=== PATIENT | female | born 1970 | race Caucasian/White ===

== ENCOUNTER 2017-10-25 09:45 | Emergency (ER) | payer SELFPAY ==
[~2017-10-25] VITALS: Ht 160 cm; Wt 68.0 kg
[~2017-10-25 09:45] MED LIST: SERO200T2 PO; VIST25CA PO
[2017-10-25 09:47] VITALS: BP 148/89; PULSE 120; RESP 16; TEMP 98.9; O2SAT 98
[2017-10-25] MEDS ORDERED: LORazepam 0.5 MG TAB PO ONE (10:45)
--- NOTE | 2017-10-25 11:00 | PD ---
HPI Chief Complaint: OD/ Ingestion Time Seen by Provider: 10:27 Travel History International Travel<30 days: No Contact w/Intl Traveler<30days: No Traveled to known affect area: No History of Present Illness HPI 47-year-old female complains of depression and suicidal. Patient has history of anxiety and depression. Patient states that she took 25 pills of amlodipine 10 mg each 2 days ago. Patient states that she took 8 tablets of temazepam 2 days ago also. Patient does not know the dosage of temazepam. Patient states that she has generalized malaise and weakness. Patient denies any headache. Patient states that she has chest pressure occasionally. Patient denies any coughing congestion fever chills. Patient denies abdominal pain. Patient denies any nausea vomiting diarrhea. Patient denies any focal weakness or numbness of extremity. Patient denies any medical problem. Patient denies any routine medication. Patient denies any alcohol or illicit drug abuse. PFSH Past Medical History Bipolar Disorder: Yes Anxiety: Yes Depression: Yes Musculoskeletal: Yes (CARPEL TUNNEL ) Tetanus Vaccination: Unknown ?: Not Past Surgical History Other Surgery: Yes (RIGHT TENDON SURGERY) Social History Alcohol Use: No Tobacco Use: Yes Substance Use: No Allergies-Medications (Allergen,Severity, Reaction): Coded Allergies: No Known Allergies (Unverified Adverse Reaction, Unknown, 10/25/17) Reported Meds & Prescriptions Reported Meds & Active Scripts Active No Active Prescriptions or Reported Medications Review of Systems General / Constitutional: No: Fever Eyes: No: Visual changes HENT: No: Headaches Cardiovascular: No: Chest Pain or Discomfort Respiratory: No: Shortness of Breath Gastrointestinal: No: Abdominal Pain Genitourinary: No: Dysuria Musculoskeletal: No: Pain Skin: No Rash Neurologic: No: Weakness Psychiatric: No: Depression Endocrine: No: Polydipsia Hematologic/Lymphatic: No: Easy Bruising Physical Exam Narrative GENERAL: Well-nourished, well-developed patient. SKIN: Focused skin assessment warm/dry. HEAD: Normocephalic. EYES: No scleral icterus. No injection or drainage. NECK: Supple, trachea midline. No JVD or lymphadenopathy. CARDIOVASCULAR: Regular rate and rhythm without murmurs, gallops, or rubs. RESPIRATORY: Breath sounds equal bilaterally. No accessory muscle use. GASTROINTESTINAL: Abdomen soft, non-tender, nondistended. MUSCULOSKELETAL: No cyanosis, or edema. BACK: Nontender without obvious deformity. No CVA tenderness. Neurologic exam normal. Data Data Last Documented VS Vital Signs Date Time Temp Pulse Resp B/P (MAP) Pulse Ox O2 Delivery O2 Flow Rate FiO2 10/25/17 09:47 98.9 120 16 148/89 (108) 98 Orders Orders Lorazepam (Ativan) (10/25/17 10:45) Complete Blood Count With Diff (10/25/17 10:38) Comprehensive Metabolic Panel (10/25/17 10:38) Thyroid Stimulating Hormone (10/25/17 10:38) Urinalysis - C+S If Indicated (10/25/17 10:38) Electrocardiogram (10/25/17 10:38) Psych Screen (10/25/17 10:38) Drug Screen, Random Urine (10/25/17 10:38) Alcohol (Ethanol) (10/25/17 10:38) Salicylates (Aspirin) (10/25/17 10:38) Tylenol (Acetaminophen) (10/25/17 10:38) Urine Culture (10/25/17 10:42) Labs Laboratory Tests Test 10/25/17 10:42 White Blood Count 10.9 TH/MM3 Red Blood Count 4.42 MIL/MM3 Hemoglobin 13.6 GM/DL Hematocrit 38.0 % Mean Corpuscular Volume 85.9 FL Mean Corpuscular Hemoglobin 30.9 PG Mean Corpuscular Hemoglobin Concent 35.9 % Red Cell Distribution Width 13.1 % Platelet Count 313 TH/MM3 Mean Platelet Volume 7.8 FL Neutrophils (%) (Auto) 76.0 % Lymphocytes (%) (Auto) 17.0 % Monocytes (%) (Auto) 6.6 % Eosinophils (%) (Auto) 0.1 % Basophils (%) (Auto) 0.3 % Neutrophils # (Auto) 8.3 TH/MM3 Lymphocytes # (Auto) 1.9 TH/MM3 Monocytes # (Auto) 0.7 TH/MM3 Eosinophils # (Auto) 0.0 TH/MM3 Basophils # (Auto) 0.0 TH/MM3 CBC Comment DIFF FINAL Differential Comment Urine Color CHIDI Urine Turbidity HAZY Urine pH 5.5 Urine Specific [place] 1.023 Urine Protein 100 mg/dL Urine Glucose (UA) TRACE mg/dL Urine Ketones TRACE mg/dL Urine Occult Blood MOD Urine Nitrite NEG Urine Bilirubin SMALL Urine Urobilinogen 4.0 MG/DL Urine Leukocyte Esterase TRACE Urine RBC 3 /hpf Urine WBC 9 /hpf Urine Squamous Epithelial Cells 12 /hpf Urine Bacteria FEW /hpf Urine Hyaline Casts 105 /lpf Urine Mucus MANY /lpf Microscopic Urinalysis Comment CULTURE INDICATED Blood Urea Nitrogen 10 MG/DL Creatinine 0.81 MG/DL Random Glucose 108 MG/DL Total Protein 8.4 GM/DL Albumin 4.3 GM/DL Calcium Level 9.9 MG/DL Alkaline Phosphatase 109 U/L Aspartate Amino Transf (AST/SGOT) 13 U/L Alanine Aminotransferase (ALT/SGPT) 17 U/L Total Bilirubin 0.4 MG/DL Sodium Level 134 MEQ/L Potassium Level 3.4 MEQ/L Chloride Level 100 MEQ/L Carbon Dioxide Level 23.9 MEQ/L Anion Gap 10 MEQ/L Estimat Glomerular Filtration Rate 75 ML/MIN Thyroid Stimulating Hormone 3rd Gen 1.540 uIU/ML Salicylates Level 4.4 MG/DL Urine Opiates Screen NEG Acetaminophen Level LESS THAN 2.0 MCG/ML Urine Barbiturates Screen NEG Urine Amphetamines Screen NEG Urine Benzodiazepines Screen POS Urine Cocaine Screen NEG Urine Cannabinoids Screen NEG Ethyl Alcohol Level LESS THAN 3 MG/DL MDM Medical Decision Making Medical Screen Exam Complete: Yes Emergency Medical Condition: Yes Interpretation(s) 1315 p.m. CBC within normal limit. Sodium 134. Potassium 3.4. Urine drug screen positive for benzodiazepine. Acetaminophen salicylate negative. Alcohol negative. Differential Diagnosis Differential diagnosis including depression, suicidal, drug overdose. Narrative Course 47-year-old female with depression and overdose on medication. Ativan 0.5 mg by mouth given. 1317 p.m. Patient is medically cleared for psychiatric evaluation and disposition. Scripts No Active Prescriptions or Reported Meds Minor Cabrera MD Oct 25, 2017 10:59
[2017-10-25 11:05] LABS: AUTOMATED NEUTROPHIL # 8.3 TH/MM3 (1.8-7.7); BASOPHIL % 0.3 % (0.0-2.0); EOSINOPHIL % 0.1 % (0.0-4.0); HEMOGLOBIN 13.6 GM/DL (11.6-15.3); LYMPHOCYTE # 1.9 TH/MM3 (1.0-4.8); MEAN CELL VOLUME 85.9 FL (80.0-100.0); MEAN CORPUSCULAR HEMOGLOBIN 30.9 PG (27.0-34.0); MEAN CORPUSCULAR HGB CONC 35.9 % (32.0-36.0); MEAN PLATELET VOLUME 7.8 FL (7.0-11.0); MONO % 6.6 % (0.0-8.0); MONOCYTE # 0.7 TH/MM3 (0-0.9); PLATELET COUNT 313 TH/MM3 (150-450); RED BLOOD COUNT 4.42 MIL/MM3 (4.00-5.30); RED CELL DISTRIBUTION WIDTH 13.1 % (11.6-17.2); WHITE BLOOD COUNT 10.9 TH/MM3 (4.0-11.0)
[2017-10-25 11:28] LABS: BACTERIA, URINE FEW /hpf; BILIRUBIN, URINE SMALL (NEG); BLOOD, URINE MOD (NEG); GLUCOSE,URINE TRACE mg/dL (NEG); HYALINE CAST, URINE 105 /lpf (RARE); KETONE, URINE TRACE mg/dL (NEG); MUCUS URINE MANY /lpf (OCC); NITRITE,URINE NEG (NEG); PH, URINE 5.5 (5.0-8.5); SQUAMOUS EPITHELIAL CELL URINE 12 /hpf (0-5); URINE LEUKOCYTE ESTERASE TRACE (NEG)
[2017-10-25 11:29] LABS: ALBUMIN 4.3 GM/DL (3.4-5.0); AST (GOT) 13 U/L (15-37); BICARBONATE 23.9 MEQ/L (21.0-32.0); BLOOD UREA NITROGEN 10 MG/DL (7-18); CALCIUM 9.9 MG/DL (8.5-10.1); CHLORIDE 100 MEQ/L (98-107); CREATININE 0.81 MG/DL (0.50-1.00); GLOMERULAR FILTRATION RATE 75 ML/MIN (>89); GLUCOSE,RANDOM 108 MG/DL (74-106); SODIUM (NA) 134 MEQ/L (136-145)
[2017-10-25 11:33] LABS: URINE COLOR AMBER (YELLW/STRAW)
[2017-10-25 11:40] LABS: ALKALINE PHOSPHATASE 109 U/L (45-117); ALT (GPT) 17 U/L (10-53); TOTAL BILIRUBIN ADULT 0.4 MG/DL (0.2-1.0); TOTAL PROTEIN 8.4 GM/DL (6.4-8.2)
[2017-10-25 11:43] LABS: ACETAMINOPHEN LESS THAN 2.0 MCG/ML (10.0-30.0)
[2017-10-25 13:18] VITALS: BP 126/78; PULSE 95; RESP 18; O2SAT 96
[2017-10-25] MEDS ORDERED: ACETAMINOPHEN 325 MG TAB PO ONE (16:30)
[2017-10-25 16:53] VITALS: BP 125/74; PULSE 89; RESP 18; O2SAT 95
[2017-10-26 02:22] VITALS: BP 111/65; PULSE 87; RESP 17; TEMP 99.1; O2SAT 97
--- NOTE | 2017-10-26 12:02 | EKG ---
Date Performed: 10/25/2017 Time Performed: 11:48:33 PTAGE: 47 years EKG: Sinus rhythm NONSPECIFIC T-WAVE ABNORMALITY BORDERLINE ECG NO PREVIOUS TRACING DOCTOR: Sachin Weber Interpretating Date/Time 10/26/2017 12:00:28
--- NOTE | 2017-10-26 12:17 | PD ---
History of Present Illness Chief Complaint: OD/ Ingestion Time Seen by Provider: 11:30 Travel History International Travel<30 Days: No Contact w/Intl Traveler<30days: No Known affected area: No Legal Status Legal Status: Voluntary History of Present Illness: History of Present Illness HPI 47-year-old female with reported history of depression and anxiety who presents to the emergency department on a voluntary basis for psychiatric evaluation. She reports that last week she took unknown amount of blood pressure medication as a suicidal gesture. Two days later she also reports that she took 8 tablets of temazepam because she wanted to sleep. The patient did not seek medical treatment at that time. She reports that she has been feeling depressed since the of her father in April 2017. Last week she reports she felt overwhelmed by her emotions. She states that she took the pills but feels that she "made a mistake." She also states "I want to get myself together". She wants to get help and wants to begin treatment once again. Electronic medical record is reviewed. One previous contact with [facility] psychiatry in 2013 at which time she presented with complaints of anxiety and felt that the medication prescribed to her by [facility] was ineffective. Patient's current toxicology report is negative for any substance of abuse. The patient has been monitored in [facility] and she has presented no behavioral concerns and no suicidality. The patient is alert, oriented female who is dressed in [facility] and is maintaining basic hygiene. Her speech is clear, logical and goal-directed. She is tearful at times. Mood is depressed and anxious. She reports that she has been staying home, afraid to go out, feeling anxious. The patient acknowledges above-mentioned stressors. There is no evidence that the patient is experiencing any hallucinations, no delusions, no paranoia. She denies any suicidal or homicidal ideation, intent or plan. She is requesting to be discharge and wants to follow up with [facility]. She has support from her brother and his as well as with her boyfriend whom she lives with. . PFSH Past Medical History Bipolar Disorder: Yes Anxiety: Yes Depression: Yes Musculoskeletal: Yes (CARPEL TUNNEL ) Tetanus Vaccination: Unknown ?: Not Past Surgical History Other Surgery: Yes (RIGHT TENDON SURGERY) Psychiatric History Psychiatric History Hx Psychiatric Treatment: HX: DEPRESSION AND ANXIETY. No history of psychiatric hospitalizations. Has received outpatient treatment at [facility] in 2011 and 2013. No previous history of suicide attempts. History of Inpatient Treatment: No Guns or firearms in home: No Social History Single female who was born in [place]. Currently is unemployed and has not worked since 2011. Lives with her boyfriend. Hx Alcohol Use: No Hx Tobacco Use: Yes Hx Substance Use: No Substance Use Type: Nicotine/Cigarettes Hx of Substance Use Treatment: No Family Psychiatric History Negative Allergies-Medications (Allergen,Severity, Reaction): Coded Allergies: No Known Allergies (Unverified Adverse Reaction, Unknown, 10/25/17) Reported Meds & Prescriptions Reported Meds & Active Scripts Active No Active Prescriptions or Reported Medications Review of Systems Psychiatric: COMPLAINS OF: Anxiety, Depression Except as stated in HPI: all other systems reviewed are Neg Mental Status Examination Appearance: Appropriate (dressed in [facility]) Consciousness: Alert Orientation: x4 Motor Activity: Normal gait Speech: Unremarkable Language: Adequate Fund of Knowledge: Adequate Attention and Concentration: Adequate Memory: Unremarkable Mood: Sad, Anxious Affect: Appropriate Thought Process & Associations: Intact Thought Content: Appropriate Hallucination Type: None Delusion Type: None Suicidal Ideation: No Suicidal Plan: No Suicidal Intention: No Homicidal Ideation: No Homicidal Plan: No Homicidal Intention: No Insight: Adequate Judgment: Adequate [facility] Medical Decision Making Medical Record Reviewed: Yes Assessment/Plan 47-year-old female with history of depression and anxiety who presents to [facility] on a voluntary status reporting that last week she overdosed on blood pressure medication as well as on sleeping medication. She did not seek medical attention at the time of the alleged suicidal gesture. The patient reports she has been feeling depressed since the of her father in April 2017. No other stressors are reported. The patient was monitored in secure environment and presented no behavioral concerns and no suicidality. At this time she is requesting to be discharged reports that she feels safe to go home. The patient is future oriented and has made statements that she wants to get better, that she wants to get help. She has supportive family members. She is cognitively intact. She contracts for safety as a general safety plan. She agrees to return to [facility] if any changes or any increase in symptoms. She will follow up with Aubrey Mccray in the morning for outpatient care and for medication evaluation. She is provided psychoeducation and support. Patient is psychiatrically clear for discharge from ED. Orders Orders Acetaminophen (Tylenol) (10/25/17 16:30) Diet Regular Basic (10/25/17 Dinner) Diet Regular Basic (10/26/17 Breakfast) Diet Regular Basic (10/26/17 Dinner) Results Vital Signs Date Time Temp Pulse Resp B/P (MAP) Pulse Ox O2 Delivery O2 Flow Rate FiO2 10/26/17 02:22 99.1 87 17 111/65 (80) 97 Room Air 10/25/17 16:53 89 18 125/74 (91) 95 Room Air 10/25/17 13:18 95 18 126/78 (94) 96 Room Air Date/Time Source Procedure Growth Status 10/25/17 10:42 Urine Random Urine Urine Culture Pending Worksheet Diagnosis Primary Impression: Adjustment disorder Psychiatrically Cleared: Yes Med/ Other Pt Specific Info: No Meds Exist/No RX given Prescriptions No Active Prescriptions or Reported Meds Disposition: 01 DISCHARGE HOME Condition: Stable Problem Qualifiers Primary Impression: Adjustment disorder Qualified Codes: F43.23 - Adjustment disorder with mixed anxiety and depressed mood Rosalie Douglass Oct 26, 2017 12:17
--- NOTE | 2017-10-26 12:22 | PD ---
Physical Exam Date Seen by Provider: Oct 26, 2017 Time Seen by Provider: 12:21 Narrative 47-year-old female came to the emergency Department voluntarily for psychiatric evaluation. She has been seen and cleared by the psychiatric nurse practitioner , Rosalie. The patient denies any current suicidal or homicidal thoughts. She feels comfortable and is excited to go home. Data Data Last Documented VS Vital Signs Date Time Temp Pulse Resp B/P (MAP) Pulse Ox O2 Delivery O2 Flow Rate FiO2 10/26/17 02:22 99.1 87 17 111/65 (80) 97 Room Air Orders Orders Lorazepam (Ativan) (10/25/17 10:45) Complete Blood Count With Diff (10/25/17 10:38) Comprehensive Metabolic Panel (10/25/17 10:38) Thyroid Stimulating Hormone (10/25/17 10:38) Urinalysis - C+S If Indicated (10/25/17 10:38) Electrocardiogram (10/25/17 10:38) Psych Screen (10/25/17 10:38) Drug Screen, Random Urine (10/25/17 10:38) Alcohol (Ethanol) (10/25/17 10:38) Salicylates (Aspirin) (10/25/17 10:38) Tylenol (Acetaminophen) (10/25/17 10:38) Urine Culture (10/25/17 10:42) Acetaminophen (Tylenol) (10/25/17 16:30) Diet Regular Basic (10/25/17 Dinner) Diet Regular Basic (10/26/17 Breakfast) Diet Regular Basic (10/26/17 Dinner) Diet Regular Basic (10/26/17 Lunch) Labs Laboratory Tests Test 10/25/17 10:42 White Blood Count 10.9 TH/MM3 Red Blood Count 4.42 MIL/MM3 Hemoglobin 13.6 GM/DL Hematocrit 38.0 % Mean Corpuscular Volume 85.9 FL Mean Corpuscular Hemoglobin 30.9 PG Mean Corpuscular Hemoglobin Concent 35.9 % Red Cell Distribution Width 13.1 % Platelet Count 313 TH/MM3 Mean Platelet Volume 7.8 FL Neutrophils (%) (Auto) 76.0 % Lymphocytes (%) (Auto) 17.0 % Monocytes (%) (Auto) 6.6 % Eosinophils (%) (Auto) 0.1 % Basophils (%) (Auto) 0.3 % Neutrophils # (Auto) 8.3 TH/MM3 Lymphocytes # (Auto) 1.9 TH/MM3 Monocytes # (Auto) 0.7 TH/MM3 Eosinophils # (Auto) 0.0 TH/MM3 Basophils # (Auto) 0.0 TH/MM3 CBC Comment DIFF FINAL Differential Comment Urine Color CHIDI Urine Turbidity HAZY Urine pH 5.5 Urine Specific [place] 1.023 Urine Protein 100 mg/dL Urine Glucose (UA) TRACE mg/dL Urine Ketones TRACE mg/dL Urine Occult Blood MOD Urine Nitrite NEG Urine Bilirubin SMALL Urine Urobilinogen 4.0 MG/DL Urine Leukocyte Esterase TRACE Urine RBC 3 /hpf Urine WBC 9 /hpf Urine Squamous Epithelial Cells 12 /hpf Urine Bacteria FEW /hpf Urine Hyaline Casts 105 /lpf Urine Mucus MANY /lpf Microscopic Urinalysis Comment CULTURE INDICATED Blood Urea Nitrogen 10 MG/DL Creatinine 0.81 MG/DL Random Glucose 108 MG/DL Total Protein 8.4 GM/DL Albumin 4.3 GM/DL Calcium Level 9.9 MG/DL Alkaline Phosphatase 109 U/L Aspartate Amino Transf (AST/SGOT) 13 U/L Alanine Aminotransferase (ALT/SGPT) 17 U/L Total Bilirubin 0.4 MG/DL Sodium Level 134 MEQ/L Potassium Level 3.4 MEQ/L Chloride Level 100 MEQ/L Carbon Dioxide Level 23.9 MEQ/L Anion Gap 10 MEQ/L Estimat Glomerular Filtration Rate 75 ML/MIN Thyroid Stimulating Hormone 3rd Gen 1.540 uIU/ML Salicylates Level 4.4 MG/DL Urine Opiates Screen NEG Acetaminophen Level LESS THAN 2.0 MCG/ML Urine Barbiturates Screen NEG Urine Amphetamines Screen NEG Urine Benzodiazepines Screen POS Urine Cocaine Screen NEG Urine Cannabinoids Screen NEG Ethyl Alcohol Level LESS THAN 3 MG/DL [facility] Supervised Visit with CRISTINA: No Narrative Course 47-year-old female was brought to the emergency department for psychiatric evaluation. She was seen and evaluated by psychiatric nurse practitioner and was cleared for discharge. The patient was discharged in stable condition with instructions, including return instructions and follow up instructions. Diagnosis Primary Impression: Adjustment disorder Qualified Codes: F43.23 - Adjustment disorder with mixed anxiety and depressed mood Patient Instructions: General Instructions, Medical Clearance for Psychiatric Care (ED) Additional Instruction: Follow-up with psychiatrist. Return to the emergency department for any acute worsening of symptoms. Med/Other Pt SpecificInfo: No Change to Meds Scripts No Active Prescriptions or Reported Meds Disposition: 01 DISCHARGE HOME Condition: Stable Karen Barahona Oct 26, 2017 12:22
== END 2017-10-26 13:05 | disposition home or self-care (01) ==
LOC: NEPE 09:45 → NEPJ 10-26 13:05
DX: F43.23 Adjustment disorder with mixed anxiety and depressed mood (principal); R53.1 Weakness; Z72.0 Tobacco use
CPT/HCPCS: 80053; 80307; 81001; 84443; 85025; 87086; 93005